=== PATIENT | female | born 1940 | race Hispanic/Latino ===

== ENCOUNTER → 2023-01-15 12:45 | Outpatient (CLI) | payer SELFPAY ==
--- NOTE | ~2023-01-15 | XR_ITS ---
EXAM: XR knee LT 3V DATE: 01/15/2023 14:27 HISTORY: left knee pain . COMPARISON: None available. FINDINGS: Decreased mineralization. No fracture or dislocation. No lytic or blastic lesion. Lateral subluxation of the tibia. Loss of normal valgus alignment. Severe tricompartmental joint space narrow ing. Moderate tricompartmental osteophytosis. No erosion or periosteal change. Soft tissues within no rmal limits. IMPRESSION: No acute osseous finding in the left knee. Reviewed, dictated and finalized at location K.
--- NOTE | ~2023-01-15 | XR_ITS ---
EXAM: XR hip BI wo pelvis DATE: 01/15/2023 14:27 HISTORY: Hip pain, abnormal gait . COMPARISON: None available. FINDINGS: Decreased mineralization. No fracture or dislocation. No lytic or blastic lesion. Lumbar d egenerative disc disease. Moderate right SI joint osteoarthritis. Severe degenerative change at the p ubic symphysis. Mild superior joint space narrowing in the right hip. No erosion or periosteal change . Soft tissues within normal limits. IMPRESSION: Mild right hip osteoarthritis. 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 Modera te right sacroiliitis. Reviewed, dictated and finalized at location K. IMPRESSION: Mild right hip osteoarthritis. Severe degenerative changes at the p ubic symphysis. Moderate right sacroiliitis.
== END ==
PROVIDERS: PCP Pediatrics; Visit Provider Pediatrics
DX: M25.569 Pain in unspecified knee (principal); R26.9 Unspecified abnormalities of gait and mobility; M16.11 Unilateral primary osteoarthritis, right hip; M46.1 Sacroiliitis, not elsewhere classified
CPT/HCPCS: 73521; 73562